=== PATIENT | female | born 1995 | race Caucasian/White ===

== ENCOUNTER 2023-06-08 12:31 | Day surgery (SDC) | payer OTHER, SELFPAY ==
[2023-06-01 15:47] VITALS: BMI 39.2
--- NOTE | 2023-06-08 | PATH_ITS ---
[facility] Accession Number: [id number] No. of containers..01 Tissue . 01 Material submitted: . subcutaneous tissue - RLQ SUBCUTANEOUS MASS . 01 Diagnosis: Soft Tissue, Right Lower Quadrant, Excision: Fibroadipose tissue with involvement by endometriosis, accompanied by inflammation and fibrosis. Negative for neoplasia. MRV 06/15/[id number] Local . 01 Electronically signed: . Joie Lizama MD, Pathologist NPI- [id number] . 01 Gross description: . Received in formalin, labeled with the patient's name and RLQ subcutaneous mass, is a 2.9 x 2.0 x 1.8 cm previously bisected mass that is heterogeneous, yellow-white to pink-james with diffuse hemorrhage. The resection margin is inked blue. Anodizer sections are submitted in cassettes A1-A2. ([id number]) /[facility] 06/12/2023 1534 Local . 01 Pathologist provided ICD-10: N80.9 . 01 CPT . 518509 Specimen Comment: A courtesy copy of this report has been sent to [facility] Pathology Performed at: 01 [facility] Cytology [address] [place] [address], [place], [place] [id number] MD Daniele Stoner MD Phone: [phone]
[2023-06-08 12:56] VITALS: BP 120/79; PULSE 77; RESP 16; TEMP 36.7; O2SAT 97; BMI 39.2
[2023-06-08] MEDS: LACTATED RINGERS 1,000 ML 42 ML IV (13:03)
--- NOTE | 2023-06-08 14:29 | PM.PREOP ---
Pre-operative Note Interval Note History & Physical reviewed/Exam performed by Physician: Yes Changes to H&P: No
--- NOTE | 2023-06-08 15:09 | SUR.OPER ---
Supine on padded OR bed, head on pillow, arms secured on padded arm boards at <90 degrees abduction, legs uncrossed, safety belt at thigh, tape over blanket over lower legs.
[2023-06-08] MEDS: BUPIVACAINE 0.25% W/ EPI 30 ML VIAL INJ (15:12)
[2023-06-08 15:38] VITALS: BP 104/61; PULSE 85; RESP 21; TEMP 36.2; O2SAT 94
--- NOTE | 2023-06-08 15:38 | P.OP_ITS ---
Operative Date/Time/Diagnoses Date of procedure: 06/08/23 Time of procedure: 15:38 Pre-op diagnosis: Right lower quadrant mass near scar Post-op diagnosis: same Procedure & Clinicians Procedure: Mass excision Same procedure as scheduled: Yes Indications: There was a painful mass that arose over the course of several months increasi ngly painful and understanding risks benefits and alternatives Ms. Dugan chose to proceed with an excision. Surgeon: Kourtney Rogel Click Yes if Unassisted: Yes Anesthesia Type: General Operative Notes Findings: There is a small hard round lesion when cut open there were some hematomatous portions of it but overall appeared to have a hard rubbery almost scar like consistency. Specimen(s): other (Right lower quadrant mass) Procedure in detail: Patient was taken to the operating room placed supine on the operating room table. Bilateral SCDs were placed a time-out was performed general endotracheal anesthesia was induced. No antibiotics were given because I felt this would be clean case. Though there was concern due to the location that there could be a hernia present underneath many qualities on the history and exam leaned against this diagnosis. The pannus was taped upward to help with exposure. The area was prepped and draped in the usual sterile fashion. Local anesthesia was then infused around the area that had been marked in the preoperative unit. Lesion remained palpable on exam. An incision was made approximately 2 cm overlying the palpable lesion. This was carried down through the subcutaneous tissue using a combination of blunt dissection with a hemostat and Metzenbaum scissors. The subcutaneous tissue surrounding the lesion was freed and the lesion itself was then removed from its location in the subcutaneous tissue. It did not appear to have any attachment to the underlying fascia. It had a very round and hard quality to it. It was removed in total. The lesion itself was 1-1/2 cm in diameter. This was sent for pathology. The subcutaneous tissue was then closed with several interrupted 3-0 Vicryl sutures the skin was closed with running 4-0 Monocryl the skin was dressed with Steri-Strips patient tolerated the procedure well and went in good condition to the postoperative care unit Complications: none Post-operative Disposition: PACU
[2023-06-08 15:44] VITALS: BP 100/61; PULSE 93; RESP 17; O2SAT 93
[2023-06-08 15:48] VITALS: BP 118/72; PULSE 88; RESP 13; O2SAT 90
[2023-06-08 15:53] VITALS: BP 113/63; PULSE 93; RESP 15; O2SAT 96
[2023-06-08 16:26] VITALS: BP 104/77; PULSE 73; RESP 14; TEMP 36.2; O2SAT 98
== END 2023-06-08 16:29 | disposition home or self-care (01) ==
PROVIDERS: PCP Student in an Organized Health Care Education/Training Program; Referring Provider Surgery; Visit Provider Surgery
PROC: (CPT 22902; principal; 2023-06-08 14:00)
DX: N80.9 Endometriosis, unspecified (principal)
CPT/HCPCS: 22902; J0330; J1100; J2405; J2704; J3010